=== PATIENT | female | born 1990 | race Caucasian/White ===

== ENCOUNTER → 2021-09-06 12:28 | Outpatient (CLI) | payer BC, SELFPAY ==
--- NOTE | ~2021-09-06 | DEXA_ITS ---
Bone Density Report Name: CASEY BOWERS Age: 31 Sex: Female Ethnicity: White Date of : 1990 Indication: monitoring treatment; Referring Provider: Wade, Calli Study: Bone densitometry was performed. Exam Date: September 06, 2021 Accession number: [id number] Bone Density: Region BMD T-score Z-score Classification AP Spine (L1-L4) 1.027 -0.2 -0.2 Normal Femoral Neck (Left) 0.767 -0.7 -0.6 Normal Total Hip (Left) 0.917 -0.2 -0.2 Normal Femoral Neck (Right) 0.792 -0.5 -0.4 Normal Total Hip (Right) 0.875 -0.5 -0.5 Normal Total Hip Mean 0.896 -0.4 -0.4 Normal World Health Organization criteria for BMD impression classify patients as: Normal (T-score at or above -1.0), Osteopenia (T-score between -1.0 and -2.5), or Osteoporosis (T-score at or below -2.5). 10-year Fracture Risk: FRAX not reported because: Premenopausal woman All T-scores for Spine Total, Hip Total, Femoral Neck at or above -1.0 Treated for osteoporosis Previous Exams: Region Exam Age BMD T-score BMD Change BMD Change Date g/cm2 vs Baseline vs Previous AP Spine(L1-L4) 09/06/2021 31 1.027 -0.2 0.064* -0.057 05/10/2017 26 1.085 0.3 0.121 0.066* 10/02/2013 23 1.019 -0.3 0.055 0.055 07/19/2011 21 0.964 -0.8 Total Hip(Left) 09/06/2021 31 0.917 -0.2 -0.035* -0.063 05/10/2017 26 0.980 0.3 0.027 -0.049* 10/02/2013 23 1.029 0.7 0.076 0.076 07/19/2011 21 0.953 0.1 Total Hip(Right) 09/06/2021 31 0.875 -0.5 -0.028* -0.066 05/10/2017 26 0.941 0.0 0.038 -0.018 10/02/2013 23 0.959 0.1 0.056 0.056 07/19/2011 21 0.903 -0.3 *Denotes significance at 95% confidence level, LSC for AP Spine = 0.022 g/cm2, LSC for Total Hip = 0.027 g/cm2 Clinical Information Provided by Patient: Is being treated for osteoporosis Has used the following medications: HRT (i.e. estrogen/hormone therapy), MULTI VITAMIN Patient maximum height was 67.4 No regular weight bearing exercise Does not regularly consume dairy products Onset of menses at age 18 Premenopausal Number of children 0 Impression: The patient's bone mass is within expected range for age, gender and ethnicity. No significant bone loss was observed. Discussion: PATIENT UNDER TREATMENT WITH NO SIGNIFICANT BMD LO
== END ==
PROVIDERS: Visit Provider Nurse Practitioner
DX: Z13.820 Encounter for screening for osteoporosis (principal)
CPT/HCPCS: 77080